=== PATIENT | female | born 1930 | race Asian ===

== ENCOUNTER 2020-01-24 09:00 | Inpatient (IN) | payer MEDICARE, MEDICAID ==
[~2020-01-24] VITALS: Ht 152.4 cm; Wt 49.3 kg
[~2020-01-24 09:00] MED LIST: ACET325T14 PO; AMLO-150 PO; DONE5TAB52 PO; LISI-170 PO; SERT50TA28 PO; TRAM50TA2 PO; VENL37.52 PO; ZOLP-413 PO
[2020-01-24] MEDS ORDERED: SODIUM CHLORIDE 0.9% 1,000ML IVBOLUS ONE (09:30)
--- NOTE | 2020-01-24 09:39 | NUR ---
[facility] was found non-verbal when awakened by staff this am at 0730; pt has hx dementia but usually is conversational at baseline. last known normal was last night. report received from [facility]. pt is awake, alert, but does not follow commands. pt localizes to painful stimuli. resps even, shallow, unlabored. EKG obtained upon arrival by EDT, all monitors in place. mask on pt. straight cath urine obtained by this RN, sterile technique maintained. pt changed into yellow gown, brian care provided. incontinent pads under pt. weight shifts q1hr will be in place. pt has non-blancheable redness to sacrum. labs drawn, pt awaiting CT head at this time. call light in reach, bed locked and in lowest position.
[2020-01-24 09:55] LABS: BASOPHILS # (AUTO) 0.01 x10^3/uL (0-0.1); BASOPHILS % (AUTO) 0 % (0-1); EOSINOPHILS # (AUTO) 0.01 x10^3/uL (0-0.4); EOSINOPHILS % (AUTO) 0 % (1-7); LYMPHOCYTES % (AUTO) 8 % (22-44); MD NO; MEAN CORPUSCULAR HEMOGLOBIN 35.3 pg (27.0-34.8); MEAN CORPUSCULAR HGB CONC 33.7 g/dL (32.4-35.8); MEAN CORPUSCULAR VOLUME 104.9 fL (80-100); MEAN PLATELET VOLUME 8.3 fL (7.4-10.4); MONOCYTES # (AUTO) 0.13 x10^3/uL (0.2-0.8); MONOCYTES % (AUTO) 2 % (2-9); NEUTROPHILS # (AUTO) 6.55 x10^3/uL (1.8-6.8); NEUTROPHILS % (AUTO) 90 % (42-75); PLATELET COUNT 148 x10^3/uL (130-400); RED BLOOD COUNT 4.61 x10^6/uL (3.82-5.3); RED CELL DISTRIBUTION WIDTH 12.9 % (9.6-15.2)
[2020-01-24 10:03] LABS: INTERNATIONAL NORMALIZED RATIO 1.01 (0.93-1.1); PROTHROMBIN TIME 10.7 Seconds (9.6-11.5)
[2020-01-24 10:06] LABS: ALBUMIN 3.7 g/dL (3.4-5.0); ANION GAP 9 mmol/L (5-15); CALCIUM 8.9 mg/dL (8.5-10.1); CHLORIDE 107 mmol/L (98-107)
[2020-01-24 10:12] LABS: ALANINE AMINOTRANSFERASE 17 U/L (12-78); ALKALINE PHOSPHATASE 69 U/L (45-117); BILIRUBIN,TOTAL 2.8 mg/dL (0.2-1.0); CREATININE 0.89 mg/dL (0.55-1.02); TOTAL PROTEIN 7.9 g/dL (6.4-8.2); TROPONIN I < 0.015 ng/mL (0.000-0.045)
[2020-01-24 10:25] LABS: MICROSCOPIC INDICATED
--- NOTE | 2020-01-24 10:48 | NUR ---
pt resting on gurney, moving extremities spontaneously. pt's resps remain even and unlabored, shallow. no change in resp status. vss. pt is nsr on diagnostic cardiac sonographer, rate 80s with no ectopy. all results back, chart up for recheck. awaiting MD and dispo.
[2020-01-24] MEDS ORDERED: CEFTRIAXONE PMX 1GM/50ML 50 ML IV ONE (11:00)
[2020-01-24] MEDS ORDERED: CEFTRIAXONE PMX 1GM/50ML 50 ML ONE (11:16)
--- NOTE | 2020-01-24 11:24 | NUR ---
this RN spoke with pt's son Russ Hutson who is the patient's POA. Russ's phone number is [phone]. Son given update with POC, per son, pt had difficulty speaking starting 6 days ago. per son, pt was seen the next day at her PCP who recommended hospice consult. pt's difficulty speaking resolved earlier this week, but son was notified that pt was non-verbal this am. pt was scheduled to have hospice consult today. ANDREAS Bull notified. Pts son agreeable to admit for IV abx and hospice consult.
--- NOTE | 2020-01-24 12:02 | NUR ---
[facility] RESIDENT EMILY SAW PT, SYMPTOMOLOGY AND VS REVIEWED WITH . STATES SHE WISHES COVID TESTING COMPLETED ON PT. MD SWABBED PT FOR COVID, SAMPLE WALKED TO LAB. THROUGHPUT RN NOTIFIED.
--- NOTE | 2020-01-24 12:06 | NUR ---
labs reviewed with MD Erlin MD notified that pt has lactic acid 2.8, and has only received 500cc NS bolus. no further orders received.
[2020-01-24] MEDS ORDERED: POTA10TA5 PO (12:23)
[2020-01-24] MEDS ORDERED: milk of magnesia PO (12:23)
[2020-01-24] MEDS ORDERED: NITR100C56 PO (12:23)
[2020-01-24] MEDS ORDERED: nystatin powder TP (12:23)
[2020-01-24] MEDS ORDERED: DIVALPROEX PO (12:23)
[2020-01-24] MEDS ORDERED: PARO20TA4 PO (12:23)
[2020-01-24] MEDS ORDERED: UREA TP (12:23)
[2020-01-24] MEDS ORDERED: POLY17PO5 PO (12:23)
[2020-01-24] MEDS ORDERED: FLUT1AER INH (12:23)
[2020-01-24] MEDS ORDERED: ACET325T14 PO ×2 (12:23)
[2020-01-24] MEDS ORDERED: NYST1000 PO (12:23)
[2020-01-24] MEDS ORDERED: ACETAMINOPHEN 325 MG TABLET PO PRN (12:30)
[2020-01-24] MEDS ORDERED: ENOXAPARIN 40 MG/0.4 ML SQ SCH (12:30)
[2020-01-24] MEDS ORDERED: ONDANSETRON ODT 4 MG PO PRN (12:30)
[2020-01-24] MEDS ORDERED: hydrALAzine 20 MG/ML, 1ML IVPush PRN (12:30)
--- NOTE | 2020-01-24 13:45 | NUR ---
REPORT GIVEN TO CHRISTINE MCLEOD. PT AWAITING TRANPSORT TO ROOM [id number]
[2020-01-24 15:00] VITALS: BP 143/84
[2020-01-24] MEDS: D5%-0.45% NACL 1,000 ML IV SCH (15:53)
[2020-01-24] MEDS: ENOXAPARIN 30 MG/0.3 ML SQ SCH (15:53)
[2020-01-24] MEDS: AZITHROMYCIN 500 MG in SODIUM CHLORIDE 0.9% 250 ML IV SCH (15:54)
[2020-01-24 19:04] VITALS: BP 123/65
[2020-01-24] MEDS: DIVALPROEX 125 MG TABLET.DR PO SCH (21:00)
[2020-01-25 00:52] VITALS: BP 115/62
[2020-01-25] MEDS: D5%-0.45% NACL 1,000 ML IV SCH ×2 (04:15→15:10)
[2020-01-25 05:26] LABS: BASOPHILS # (AUTO) 0.02 x10^3/uL (0-0.1); BASOPHILS % (AUTO) 1 % (0-1); EOSINOPHILS # (AUTO) 0.16 x10^3/uL (0-0.4); EOSINOPHILS % (AUTO) 5 % (1-7); LYMPHOCYTES # (AUTO) 0.74 x10^3/uL (1-3.4); LYMPHOCYTES % (AUTO) 22 % (22-44); MD NO; MEAN CORPUSCULAR HEMOGLOBIN 35.2 pg (27.0-34.8); MEAN CORPUSCULAR HGB CONC 33.9 g/dL (32.4-35.8); MEAN CORPUSCULAR VOLUME 103.9 fL (80-100); MEAN PLATELET VOLUME 8.2 fL (7.4-10.4); MONOCYTES # (AUTO) 0.34 x10^3/uL (0.2-0.8); MONOCYTES % (AUTO) 10 % (2-9); NEUTROPHILS # (AUTO) 2.05 x10^3/uL (1.8-6.8); NEUTROPHILS % (AUTO) 62 % (42-75); PLATELET COUNT 118 x10^3/uL (130-400); RED BLOOD COUNT 3.66 x10^6/uL (3.82-5.3); RED CELL DISTRIBUTION WIDTH 13.1 % (9.6-15.2)
[2020-01-25 05:35] LABS: CHLORIDE 108 mmol/L (98-107)
[2020-01-25 05:42] LABS: ALANINE AMINOTRANSFERASE 12 U/L (12-78); ALKALINE PHOSPHATASE 50 U/L (45-117); ANION GAP 5 mmol/L (5-15); BILIRUBIN,TOTAL 1.6 mg/dL (0.2-1.0); CALCIUM 7.8 mg/dL (8.5-10.1); CREATININE 0.64 mg/dL (0.55-1.02); TOTAL PROTEIN 6.3 g/dL (6.4-8.2)
[2020-01-25 07:09] VITALS: BP 126/81
[2020-01-25] MEDS: POLYETHYLENE GLYCOL 17 GM PACKET PO SCH (09:00)
[2020-01-25] MEDS: PAROXETINE 20 MG TABLET PO SCH (09:00)
[2020-01-25] MEDS: DIVALPROEX 125 MG TABLET.DR PO SCH ×2 (09:00→20:04)
[2020-01-25] MEDS: AMLODIPINE 10 MG TAB PO SCH (09:00)
[2020-01-25] MEDS: FLUTICASONE/VILANTEROL 100-25MCG/INH INH SCH (10:19)
[2020-01-25] MEDS: CEFTRIAXONE PMX 1GM/50ML 50 ML IV SCH (12:19)
[2020-01-25 13:03] VITALS: BP 132/79
[2020-01-25] MEDS: AZITHROMYCIN 500 MG in SODIUM CHLORIDE 0.9% 250 ML IV SCH (16:11)
[2020-01-25] MEDS: ENOXAPARIN 30 MG/0.3 ML SQ SCH (16:11)
[2020-01-25 18:39] VITALS: BP 126/76
[2020-01-25] MEDS ORDERED: POTASSIUM CHLORIDE 20 MEQ TAB.ER.PRT PO ONE (19:00)
[2020-01-26 00:05] VITALS: BP 127/70
[2020-01-26 05:35] LABS: BASOPHILS # (AUTO) 0.01 x10^3/uL (0-0.1); BASOPHILS % (AUTO) 0 % (0-1); EOSINOPHILS # (AUTO) 0.13 x10^3/uL (0-0.4); EOSINOPHILS % (AUTO) 4 % (1-7); LYMPHOCYTES # (AUTO) 1.24 x10^3/uL (1-3.4); LYMPHOCYTES % (AUTO) 35 % (22-44); MD NO; MEAN CORPUSCULAR HEMOGLOBIN 35.5 pg (27.0-34.8); MEAN CORPUSCULAR VOLUME 104.3 fL (80-100); MEAN PLATELET VOLUME 8.6 fL (7.4-10.4); MONOCYTES # (AUTO) 0.37 x10^3/uL (0.2-0.8); MONOCYTES % (AUTO) 11 % (2-9); NEUTROPHILS # (AUTO) 1.76 x10^3/uL (1.8-6.8); NEUTROPHILS % (AUTO) 50 % (42-75); PLATELET COUNT 109 x10^3/uL (130-400); RED BLOOD COUNT 3.29 x10^6/uL (3.82-5.3); RED CELL DISTRIBUTION WIDTH 13.2 % (9.6-15.2)
[2020-01-26 05:41] LABS: ANION GAP 6 mmol/L (5-15); CHLORIDE 110 mmol/L (98-107)
[2020-01-26 05:42] LABS: CREATININE 0.52 mg/dL (0.55-1.02)
[2020-01-26 07:41] VITALS: BP 152/72
[2020-01-26] MEDS: POLYETHYLENE GLYCOL 17 GM PACKET PO SCH (07:57)
[2020-01-26] MEDS: PAROXETINE 20 MG TABLET PO SCH (07:57)
[2020-01-26] MEDS: DIVALPROEX 125 MG TABLET.DR PO SCH ×2 (07:57→19:47)
[2020-01-26] MEDS: AMLODIPINE 10 MG TAB PO SCH (07:57)
[2020-01-26] MEDS: FLUTICASONE/VILANTEROL 100-25MCG/INH INH SCH (07:58)
[2020-01-26] MEDS: D5%-0.45% NACL 1,000 ML IV SCH (07:58)
[2020-01-26] MEDS ORDERED: POTASSIUM CHLORIDE 20 MEQ TAB.ER.PRT PO ONE (08:30)
[2020-01-26] MEDS: CEFTRIAXONE PMX 1GM/50ML 50 ML IV SCH (11:57)
[2020-01-26 14:27] VITALS: BP 125/74
[2020-01-26] MEDS: ENOXAPARIN 30 MG/0.3 ML SQ SCH (15:50)
[2020-01-26] MEDS: AZITHROMYCIN 500 MG in SODIUM CHLORIDE 0.9% 250 ML IV SCH (15:50)
[2020-01-26 18:46] VITALS: BP 132/78
[2020-01-27 00:13] VITALS: BP 135/73
[2020-01-27] MEDS: D5%-0.45% NACL 1,000 ML IV SCH ×2 (00:14→20:03)
[2020-01-27 04:21] LABS: BASOPHILS # (AUTO) 0.02 x10^3/uL (0-0.1); BASOPHILS % (AUTO) 1 % (0-1); EOSINOPHILS # (AUTO) 0.14 x10^3/uL (0-0.4); EOSINOPHILS % (AUTO) 4 % (1-7); LYMPHOCYTES # (AUTO) 1.24 x10^3/uL (1-3.4); LYMPHOCYTES % (AUTO) 36 % (22-44); MD NO; MEAN CORPUSCULAR HEMOGLOBIN 35.1 pg (27.0-34.8); MEAN CORPUSCULAR HGB CONC 33.7 g/dL (32.4-35.8); MEAN CORPUSCULAR VOLUME 104.1 fL (80-100); MEAN PLATELET VOLUME 8.6 fL (7.4-10.4); MONOCYTES # (AUTO) 0.38 x10^3/uL (0.2-0.8); MONOCYTES % (AUTO) 11 % (2-9); NEUTROPHILS % (AUTO) 49 % (42-75); PLATELET COUNT 121 x10^3/uL (130-400); RED CELL DISTRIBUTION WIDTH 13.2 % (9.6-15.2)
[2020-01-27 08:00] VITALS: BP 120/71
[2020-01-27] MEDS: PAROXETINE 20 MG TABLET PO SCH (08:15)
[2020-01-27] MEDS: AMLODIPINE 10 MG TAB PO SCH (08:15)
[2020-01-27] MEDS: DIVALPROEX 125 MG TABLET.DR PO SCH ×3 (08:15→20:12)
[2020-01-27] MEDS: POLYETHYLENE GLYCOL 17 GM PACKET PO SCH (08:15)
[2020-01-27] MEDS: FLUTICASONE/VILANTEROL 100-25MCG/INH INH SCH (08:16)
[2020-01-27] MEDS ORDERED: AZITHROMYCIN 500 MG TABLET PO SCH (09:00)
[2020-01-27] MEDS: CEFTRIAXONE PMX 1GM/50ML 50 ML IV SCH (12:38)
[2020-01-27 14:37] VITALS: BP 160/79
[2020-01-27] MEDS: ENOXAPARIN 30 MG/0.3 ML SQ SCH (17:16)
[2020-01-27 18:54] VITALS: BP 127/85
[2020-01-28 00:31] VITALS: BP 112/65
[2020-01-28] MEDS ORDERED: ACETAMINOPHEN 325 MG TABLET PO PRN (08:30)
[2020-01-28] MEDS: SODIUM CHLORIDE 0.9% 1,000 ML IV SCH (09:00)
[2020-01-28] MEDS: FLUTICASONE/VILANTEROL 100-25MCG/INH INH SCH (09:09)
[2020-01-28] MEDS: POLYETHYLENE GLYCOL 17 GM PACKET PO SCH (09:09)
[2020-01-28] MEDS: PAROXETINE 20 MG TABLET PO SCH (09:10)
[2020-01-28] MEDS: AMLODIPINE 10 MG TAB PO SCH (09:10)
[2020-01-28] MEDS: AMOXICILLIN 500 MG CAPSULE PO SCH ×5 (09:10→20:57)
[2020-01-28] MEDS: DIVALPROEX 125 MG TABLET.DR PO SCH ×4 (09:10→20:57)
[2020-01-28] MEDS: DOXYCYCLINE 100MG TABLET PO SCH ×4 (09:10→20:57)
[2020-01-28] MEDS: HEPARIN 5,000 UNITS/ML, 1ML SQ SCH ×2 (09:11→20:44)
[2020-01-28 09:23] LABS: C-REACTIVE PROTEIN, QUANT 1.4 mg/dL (0.02-0.49)
[2020-01-28 09:29] VITALS: BP 170/78
[2020-01-28] MEDS ORDERED: DOXY100T PO (13:27)
[2020-01-28] MEDS ORDERED: AMOX-291 PO (13:27)
[2020-01-28 13:42] VITALS: BP 132/79
[2020-01-28 20:40] VITALS: BP 148/74
[2020-01-29 00:35] VITALS: BP 145/88
[2020-01-29] MEDS: SODIUM CHLORIDE 0.9% 1,000 ML IV SCH (04:47)
[2020-01-29 07:26] VITALS: BP 151/78
[2020-01-29] MEDS: DIVALPROEX 125 MG TABLET.DR PO SCH ×2 (08:54→22:20)
[2020-01-29] MEDS: AMOXICILLIN 500 MG CAPSULE PO SCH ×3 (08:55→22:20)
[2020-01-29] MEDS: FLUTICASONE/VILANTEROL 100-25MCG/INH INH SCH (08:55)
[2020-01-29] MEDS: CALCIUM/VITAMIN D3 250-125 TABLET PO SCH ×2 (08:55→22:21)
[2020-01-29] MEDS: PAROXETINE 20 MG TABLET PO SCH (08:55)
[2020-01-29] MEDS: POLYETHYLENE GLYCOL 17 GM PACKET PO SCH (08:55)
[2020-01-29] MEDS: AMLODIPINE 10 MG TAB PO SCH (08:55)
[2020-01-29] MEDS: DOXYCYCLINE 100MG TABLET PO SCH ×2 (08:55→22:21)
[2020-01-29] MEDS: HEPARIN 5,000 UNITS/ML, 1ML SQ SCH ×2 (08:55→22:22)
[2020-01-29 13:00] VITALS: BP 132/80
[2020-01-29 19:26] VITALS: BP 107/69
[2020-01-29] MEDS ORDERED: DOXYCYCLINE 100MG CAP ONE (22:12)
[2020-01-30 01:34] VITALS: BP 108/67
[2020-01-30] MEDS: SODIUM CHLORIDE 0.9% 1,000 ML IV SCH (01:48)
[2020-01-30 07:08] VITALS: BP 114/69
[2020-01-30] MEDS ORDERED: DOXYCYCLINE 100MG CAP ONE (08:43)
[2020-01-30] MEDS: PAROXETINE 20 MG TABLET PO SCH (08:56)
[2020-01-30] MEDS: DIVALPROEX 125 MG TABLET.DR PO SCH (08:56)
[2020-01-30] MEDS: AMLODIPINE 10 MG TAB PO SCH (08:56)
[2020-01-30] MEDS: FLUTICASONE/VILANTEROL 100-25MCG/INH INH SCH (08:56)
[2020-01-30] MEDS: CALCIUM/VITAMIN D3 250-125 TABLET PO SCH (08:56)
[2020-01-30] MEDS: AMOXICILLIN 500 MG CAPSULE PO SCH (08:56)
[2020-01-30] MEDS: HEPARIN 5,000 UNITS/ML, 1ML SQ SCH (08:56)
[2020-01-30] MEDS: DOXYCYCLINE 100MG TABLET PO SCH (08:57)
[2020-01-30] MEDS: POLYETHYLENE GLYCOL 17 GM PACKET PO SCH (08:57)
== END 2020-01-30 12:32 | disposition hospice, home (50) | DRG 193 ==
LOC: ED 11:31 → EDIP 13:40 → 4NW 14:05
PROVIDERS: ADMIT Family Medicine; ATTEND Internal Medicine
PROC: 0T9B70Z Drainage of Bladder with Drainage Device, Via Natural or Artificial Opening (ICD-10-PCS; principal; 2020-01-24)
DX: J18.9 Pneumonia, unspecified organism (principal); G93.41 Metabolic encephalopathy; E87.2 Acidosis; R17 Unspecified jaundice; N39.0 Urinary tract infection, site not specified; D69.6 Thrombocytopenia, unspecified; E87.6 Hypokalemia; F01.50 Vascular dementia, unspecified severity, without behavioral disturbance, psychotic disturbance, mood disturbance, and anxiety; I11.9 Hypertensive heart disease without heart failure; Z51.5 Encounter for palliative care; E86.0 Dehydration; Z66 Do not resuscitate; Z86.14 Personal history of Methicillin resistant Staphylococcus aureus infection; Z99.3 Dependence on wheelchair; Z20.828 Contact with and (suspected) exposure to other viral communicable diseases
CPT/HCPCS: 36415; 70450; 71045; 80048; 80053; 81001; 82330; 82728; 82962; 83605; 83615; 83735; 84100; 84145; 84484; 85025; 85379; 85610; 86140; 87040; 87086; 93005; 96361; 96365; 96366; G0378; J0456; J0696; J1644; J1650; J7030; J7050; U0001-CS